=== PATIENT | female | born 1985 | race American Indian/Alaskan Native ===

== ENCOUNTER 2019-03-19 09:13 | Emergency (ER) | payer OTHER ==
[2019-03-19 09:24] VITALS: BP 123/84
--- NOTE | 2019-03-19 10:23 | Emergency Department Report ---
ED Female HPI - General Chief complaint: Vaginal Bleeding Stated complaint: 12 WKS /BLEEDING Time Seen by Provider: 03/19/19 09:49 Source: patient Mode of arrival: Ambulatory Limitations: No Limitations - History of Present Illness Initial comments: This is a 33-year-old who presents ED currently at 12 weeks gestation complaining of vaginal bleed 2 days. Patient states yesterday she noticed vaginal bleeding was a brownish to red color and this morning she noticed that it was bright red. Patient states his platelet is mild. She denies abdominal or pelvic pain or cramping, fever, nausea vomiting, trauma. Patient is followed by primary ECONOMIC GEOGRAPHER currently MD Complaint: vaginal bleeding - Related Data Allergies Allergy/AdvReac Type Severity Reaction Status Date / Time No Known Allergies Allergy Unverified 03/19/19 12:17 ED Review of Systems ROS: Stated complaint: 12 WKS /BLEEDING Other details as noted in HPI Comment: All other systems reviewed and negative ED Past Medical Hx - Social History Smoking Status: Never Smoker Substance Use Type: None ED Physical Exam - General Limitations: No Limitations General appearance: alert, in no apparent distress - Head Head exam: Present: atraumatic, normocephalic - Eye Eye exam: Present: normal appearance - ENT ENT exam: Present: mucous membranes moist - Respiratory Respiratory exam: Present: normal lung sounds bilaterally. Absent: respiratory distress - Cardiovascular Cardiovascular Exam: Present: regular rate, normal rhythm. Absent: systolic murmur, diastolic murmur, rubs, gallop - GI/Abdominal GI/Abdominal exam: Present: soft, normal bowel sounds. Absent: distended, tenderness, guarding, rebound, mass - Extremities Exam Extremities exam: Present: normal inspection - Back Exam Back exam: Present: normal inspection - Neurological Exam Neurological exam: Present: alert, oriented X3 - Psychiatric Psychiatric exam: Present: normal affect, normal mood - Skin Skin exam: Present: warm, dry, intact, normal color. Absent: rash ED Course Vital Signs 03/19/19 09:18 Temperature 98.1 F Pulse Rate 96 H Respiratory 18 Rate Blood Pressure 123/84 O2 Sat by Pulse 98 Oximetry ED Medical Decision Making - Medical Decision Making 33-year-old female presents to ED with vaginal bleeding in ED course: Pt received urinalysis, and quantitative ED All labs within normal limits, Ultrasound was not performed because patient left the ER AGAINST MEDICAL ADVICE. Patient states that she called her ECONOMIC GEOGRAPHER and will follow-up with primary ECONOMIC GEOGRAPHER Vital signs normalized patient is in no acute distress. Critical care attestation.: If time is entered above; I have spent that time in minutes in the direct care of this critically ill patient, excluding procedure time. ED Disposition Clinical Impression: Vaginal bleeding in , UTI (urinary tract infection) during Disposition: LEFT AGAINST MED ADVICE Is pt being admited?: No Does the pt Need Aspirin: No Condition: Stable Instructions: Threatened Miscarriage (ED), Urinary Tract Infection in Women (ED) Additional Instructions: Make sure to follow up with the primary care physician as discussed. Take all your medications as you've been prescribed. If you have any worsening symptoms or develop new symptoms please return to ED immediately. Referrals: GABRIELA JONES III, [facility] [Primary Care Provider] - 3-5 Days [facility] [Provider Group] - 3-5 Days
[2019-03-19 10:43] LABS: Bacteria,Urine 1+ /HPF (Negative); Bilirubin,Urine NEG (Negative); Blood,Urine LG (Negative); Color,Urine Yellow (Yellow); Mucus,Urine FEW /HPF; Protein,Urine <15 mg/dL mg/dL (Negative); Urobilinogen,Urine < 2.0 mg/dL (<2.0)
[2019-03-19 10:44] LABS: RBC,Urine > 182.0 /HPF (0.0-6.0)
== END 2019-03-19 12:23 | disposition left against medical advice (07) ==
LOC: ED 09:13
DX: O23.41 Unspecified infection of urinary tract in pregnancy, first trimester (principal); O46.91 Antepartum hemorrhage, unspecified, first trimester; Z3A.12 12 weeks gestation of pregnancy
CPT/HCPCS: 36415; 81001; 84702; 99283

== ENCOUNTER 2019-03-29 10:26 | Day surgery (SDC) | payer OTHER ==
[2019-03-29] MEDS ORDERED: SUBLIMAZE IV PRN (10:49)
--- NOTE | 2019-03-29 10:57 | Anesthesia Consultation ---
Anesthesia Consult and Med Hx Date of service: 03/29/19 - Airway Anesthetic Teeth Evaluation: Good ROM Head & Neck: Adequate Mental/Hyoid Distance: Adequate Mallampati Class: Class II Intubation Access Assessment: Probably Good - Pulmonary Exam CTA: Yes - Cardiac Exam Cardiac Exam: RRR - Pre-Operative Health Status ASA Pre-Surgery Classification: ASA2 Proposed Anesthetic Plan: General - Pulmonary Hx Smoking: No Hx Respiratory Symptoms: No - Cardiovascular System Hx Hypertension: No Hx Heart Attack/AMI: No Hx Percutaneous Transluminal Coronary Angioplasty (PTCA): No - Central Nervous System Hx Seizures: No CVA: No Hx Psychiatric Problems: No - Gastrointestinal Hx Gastroesophageal Reflux Disease: No - Endocrine Hx Renal Disease: No Hx Liver Disease: No Hx Non-Insulin Dependent Diabetes: Yes - Other Systems Hx Obesity: Yes - Additional Comments Anesthesia Medical History Comments: No prior GA. No FHx anesthetic complications. Spont. at approx 8wks per patient.
--- NOTE | 2019-03-29 10:57 | Anesthesia Day of Surgery ---
Anesthesia Day of Surgery - Day of Surgery Patient Examined: Yes Patient H&P Reviewed: Yes Patient is NPO: Yes
[2019-03-29] MEDS ORDERED: TRANSDERM-SCOP TD NR (11:00)
[2019-03-29] MEDS ORDERED: LACTATED RINGERS 1,000 ML IV SCH (11:00)
[2019-03-29] MEDS ORDERED: VERSED IV NR (11:00)
[2019-03-29 11:33] LABS: Hematocrit 32.1 % (30.3-42.9); Hemoglobin 11.2 gm/dl (10.1-14.3)
--- NOTE | 2019-03-29 13:44 | Short Stay Summary ---
Short Stay Documentation Date of service: 03/29/19 Narrative H&P: 33-year-old at 8 weeks estimated gestational age with findings of a blighted ovum on ultrasound. The patient denies any vaginal bleeding or pelvic pain. She is unaware of any precipitating event for her miscarriage. - History Principal diagnosis: missed Past Medical History: diabetes, other (congenital heart defect) Past Surgical History: No surgical history Social history: single - Allergies and Medications Current Medications: Allergies No Known Allergies Allergy (Unverified 03/28/19 10:10) Home Medications Medication Instructions Recorded Confirmed Last Taken Type No Known Home Medications [No 03/28/19 03/28/19 Unknown History Reported Home Medications] Active Medications Fentanyl (Sublimaze) 50 mcg IV Q5MIN PRN PRN Reason: Pain , Severe (7-10) Stop: 03/29/19 20:00 Lactated Ringer's (Lactated Ringers) 1,000 mls @ 100 mls/hr IV DIRECT GREGG Last Admin: 03/29/19 12:05 Dose: 100 mls/hr Documented by: Midazolam HCl (Versed) 2 mg IV PREOP NR Stop: 03/29/19 23:59 Scopolamine (Transderm-Scop) 1 each TD PREOP NR Stop: 03/29/19 23:00 Last Admin: 03/29/19 11:20 Dose: 1 each Documented by: - Physical exam General appearance: no acute distress Integumentary: no rash HEENT: Atraumatic Lungs: Clear to auscultation Breasts: deferred Heart: Regular rate Gastrointestinal: normal Female Genitourinary: deferred Extremities: no ischemia Neurological: Normal gait - Brief post op/procedure progress note Date of procedure: 03/29/19 Pre-op diagnosis: missed Post-op diagnosis: same Procedure: Suction dilatation and curettage Anesthesia: SADAA Surgeon: RAAD MACHUCA Estimated blood loss: 50-100ml Pathology: list (products of conception) Specimen disposition: to lab Condition: stable - Hospital course Hospital course: The patient was admitted the day of surgery and underwent a suction dilatation and curettage. Please see operative note for details of surgery. Her postoperative course was uneventful. - Disposition Condition at discharge: Good Disposition: DC-01 TO HOME OR SELFCARE Short Stay Discharge Plan Activity: other (pelvic rest for 1-2 weeks) Diet: regular Additional Instructions: Scheduled follow-up with Dr. Shipman in 2 weeks Prescriptions: Ibuprofen [Motrin] 800 mg PO Q8HR PRN #60 tablet PRN Reason: Pain, Mild (1-3) HYDROcodone/APAP 5-325 [Alviso 5/325] 1 each PO Q6HR PRN #20 tablet PRN Reason: Pain
[2019-03-29] MEDS ORDERED: SUBLIMAZE ONE (13:56)
[2019-03-29] MEDS ORDERED: DIPRIVAN 10 MG/ML IV ONE (13:57)
[2019-03-29] MEDS ORDERED: VERSED ONE (14:04)
[2019-03-29] MEDS ORDERED: DECADRON ONE (14:17)
[2019-03-29] MEDS ORDERED: ZOFRAN ONE (14:17)
[2019-03-29] MEDS ORDERED: SILVER NITRATE TP ONE ×3 (14:30→15:10)
--- NOTE | 2019-03-29 14:42 | Operative Report ---
Operative Report Operative Report: Date of surgery: 03/29/2019 Preoperative diagnosis: Missed Postoperative diagnosis: Same as above Procedure: Suction dilatation and curettage Surgeon: Katya Shipman M.D. Anesthesia: Gen. endotracheal anesthesia Estimated blood loss: 100 mL Findings: Products of conception Indication: 33-year-old at 8 weeks estimated gestational age with findings of blighted ovum on ultrasound. Procedure: The patient was taken to the operating room and given general endotracheal anesthesia without complication. The patient is prepped and draped in a normal sterile fashion. A bivalve speculum was placed in the patient's vagina and a single-tooth tenaculums placed on the anterior lip of the cervix. The uterine cavity was then sounded. The cervical os was dilated with products of conception being expelled through the os. A number 9 Kiswahili curved cannula was placed to suction and found to be adequate. The cannula was then gently inserted into the dilated cervical os. Evacuation of the uterine contents were performed. Sharp curettage and endometrial surface was performed until cry was achieved. The cannula was then gently reinserted into the uterine cavity to evacuate any additional contents. After removal of the cannula there was no evidence of any active bleeding. The vaginal instruments were then removed atraumatically. The patient was then successfully extubated and taken to the recovery room in stable condition. All sponge laps and needle counts were correct 2. Pathology consisted of products of conception.
[2019-03-29 15:36] VITALS: BP 112/64
--- NOTE | 2019-03-29 15:59 | Post Anesthesia Evaluation ---
- Post Anesthesia Evaluation Patient Participated: Yes Airway Patent: Yes Stable Respiratory Function: Yes Nausea/Vomiting: No Temp > 96.8F: Yes Pain Manageable: Yes Adequeate Hydration: Yes Anesthesia Complications: No
== END 2019-03-29 10:27 | disposition home or self-care (01) ==
LOC: OR 10:26
PROVIDERS: ATTEND Obstetrics & Gynecology
DX: O02.1 Missed abortion (principal); E11.9 Type 2 diabetes mellitus without complications; G43.909 Migraine, unspecified, not intractable, without status migrainosus; Z79.899 Other long term (current) drug therapy; Z86.2 Personal history of diseases of the blood and blood-forming organs and certain disorders involving the immune mechanism
CPT/HCPCS: 36415; 59820; 82962; 85014; 85018; 88305; J1100; J2250; J2405; J2704; J3010; J7120